=== PATIENT | female | born 1945 | race African-American/Black ===

== ENCOUNTER 2017-01-21 18:10 | Emergency (ER) | payer MEDICAID ==
[~2017-01-21 18:10] MED LIST: AMLO2.5T PO; APIX5TAB PO; ARIC10TA PO; CARB0.5D16 EACH EYE; COUG100S2 PO; FERR324T4 PO; FURO1TAB93 PO; HYDR50TA15 PO; KEPP500T3 PO; LANTUS2P SQ; METO25 PO; NOVOLOGSS SQ; PANT40IN3 PO; PHEN12.5 PO; POTA0.15 PO; REME15TA PO; SUPETAB30 PO; VALP250UDC PO
[2017-01-21 18:27] VITALS: BP 207/98; PULSE 89; RESP 20; TEMP 98.1; O2SAT 94
--- NOTE | 2017-01-21 18:33 | PD ---
HPI Chief Complaint: Medical Clearance Time Seen by Provider: 18:20 Travel History International Travel<30 days: No Contact w/Intl Traveler<30days: No Traveled to known affect area: No History of Present Illness HPI 72-year-old female with history of advanced dementia, CVA, hypertension, diabetes, presents via EMS for evaluation. The patient is a resident at [facility]. The report is that the patient was asleep and the staff was having difficulty awakening her. She woke to sternal rub. By the time EMS arrived she was back to her normal baseline mental status with a GCS of 12 but per their policy she was sent here for evaluation of the incident. The patient is currently awake, alert. Her speech is incomprehensible but she responds to simple commands. Her GCS is currently 12. She has had a cough per EMS and she does have some wheezing on auscultation bilaterally. History is otherwise limited and unobtainable from the patient. PFSH Past Medical History Alzheimer's Disease: Yes Arthritis: No Autoimmune Disease: No Blood Disorders: No Anxiety: No Depression: No Heart Rhythm Problems: No Cancer: No Cardiovascular Problems: Yes High Cholesterol: No Chemotherapy: No Chest Pain: No Congestive Heart Failure: No Cerebrovascular Accident: Yes Dementia: Yes Diabetes: Yes Diminished Hearing: No Endocrine: Yes Gastrointestinal Disorders: No Glaucoma: No Gout: No Genitourinary: No Headaches: No Hypertension: Yes Immune Disorder: No Implanted Vascular Access Dvce: No Musculoskeletal: No Neurologic: Yes Psychiatric: No Reproductive: No Respiratory: No Migraines: No Myocardial Infarction: No Pneumonia: Yes Radiation Therapy: No Seizures: Yes Thyroid Disease: No Menopausal: Yes Past Surgical History Abdominal Surgery: No AICD: No Arteriovenous Shunt: No Cardiac Surgery: No Section: Yes Ear Surgery: No Endocrine Surgery: No Eye Surgery: Yes (RIGHT EYE CATARACT SX 2009) Genitourinary Surgery: No Gynecologic Surgery: No Insulin Pump: No Joint Replacement: No Neurologic Surgery: No Oral Surgery: No Pacemaker: No Thoracic Surgery: No Other Surgery: No Social History Alcohol Use: No Tobacco Use: No Substance Use: No Allergies-Medications (Allergen,Severity, Reaction): Coded Allergies: Lisinopril (Verified Allergy, Severe, angioedema, 04/22/16) Uncoded Allergies: MARCIN INHIBITOR (Allergy, Severe, 02/01/14) Reported Meds & Prescriptions Reported Meds & Active Scripts Active Reported Valproic Acid Liq 250 Mg/5 Ml Syp 250 Mg PO DAILY Omeprazole 20 Mg Tab 20 Mg PO DAILY Lantus Inj (Insulin Glargine) 1,000 Unit/10 Ml Vial 8 Units SQ HS Furosemide 20 Mg Tab 20 Mg PO DAILY Ferrous Sulfate 325 Mg Tab 325 Mg PO DAILY Donepezil 10 Mg Tab 10 Mg PO HS Artificial Tears Opth Drops (Polyvinyl Alcohol) 1.4% Soln 1 Drop EACH EYE HS Amlodipine (Amlodipine Besylate) 2.5 Mg Tab 2.5 Mg PO DAILY Review of Systems Except as stated in HPI: all other systems reviewed are Neg Physical Exam Narrative GENERAL: Chronically ill-appearing female in no acute distress. Awake, alert. She is able to say her name. The rest of her speech is incomprehensible. SKIN: Warm and dry. HEAD: Atraumatic. Normocephalic. EYES: Pupils equal and round. No scleral icterus. No injection or drainage. ENT: No nasal bleeding or discharge. Mucous membranes pink and moist. NECK: Trachea midline. No JVD. CARDIOVASCULAR: Regular rate and rhythm. No murmur appreciated. RESPIRATORY: No accessory muscle use. Clear to auscultation. Breath sounds equal bilaterally. GASTROINTESTINAL: Abdomen soft, non-tender, nondistended. Hepatic and splenic margins not palpable. MUSCULOSKELETAL: No obvious deformities. Contractures noted to the left upper and lower extremity. She is able to international editorial producer my hand with her left and right hand. NEUROLOGICAL: Awake and alert. Incomprehensible speech. GCS 12([id number]) Data Data Last Documented VS Vital Signs Date Time Temp Pulse Resp B/P Pulse Ox O2 Delivery O2 Flow Rate FiO2 01/21/17 19:28 95 21 01/21/17 18:27 98.1 89 20 207/98 Orders Electrocardiogram (01/21/17 18:32) Complete Blood Count With Diff (01/21/17 18:32) Comprehensive Metabolic Panel (01/21/17 18:32) Urinalysis - C+S If Indicated (01/21/17 18:32) Chest, Single Ap (01/21/17 18:32) Ct Brain W/O Iv Contrast(Rout) (01/21/17 18:32) Blood Glucose (01/21/17 18:32) Ecg Monitoring (01/21/17 18:32) Iv Access Insert/Monitor (01/21/17 18:32) Oximetry (01/21/17 18:32) Sodium Chloride 0.9% Flush (Ns Flush) (01/21/17 18:45) Albuterol-Ipratropium Neb (Duoneb Neb) (01/21/17 18:45) Cath For Specimen (01/21/17 19:18) Valproic Acid (Depakene) (01/21/17 19:19) Urine Culture (01/21/17 20:19) Ceftriaxone Inj (Rocephin Inj) (01/21/17 21:00) Labs Laboratory Tests Test 01/21/17 01/21/17 19:10 20:19 White Blood Count 11.7 TH/MM3 Red Blood Count 4.52 MIL/MM3 Hemoglobin 10.1 GM/DL Hematocrit 30.7 % Mean Corpuscular Volume 67.8 FL Mean Corpuscular Hemoglobin 22.3 PG Mean Corpuscular Hemoglobin 32.9 % Concent Red Cell Distribution Width 15.4 % Platelet Count 285 TH/MM3 Mean Platelet Volume 9.6 FL Neutrophils (%) (Auto) 63.0 % Lymphocytes (%) (Auto) 26.4 % Monocytes (%) (Auto) 6.8 % Eosinophils (%) (Auto) 3.0 % Basophils (%) (Auto) 0.8 % Neutrophils # (Auto) 7.4 TH/MM3 Lymphocytes # (Auto) 3.1 TH/MM3 Monocytes # (Auto) 0.8 TH/MM3 Eosinophils # (Auto) 0.4 TH/MM3 Basophils # (Auto) 0.1 TH/MM3 CBC Comment DIFF FINAL Differential Comment Sodium Level 148 MEQ/L Potassium Level 3.9 MEQ/L Chloride Level 107 MEQ/L Carbon Dioxide Level 32.8 MEQ/L Anion Gap 8 MEQ/L Blood Urea Nitrogen 33 MG/DL Creatinine 1.92 MG/DL Estimat Glomerular Filtration 31 ML/MIN Rate Random Glucose 225 MG/DL Calcium Level 8.0 MG/DL Total Bilirubin 0.1 MG/DL Aspartate Amino Transf 16 U/L (AST/SGOT) Alanine Aminotransferase 18 U/L (ALT/SGPT) Alkaline Phosphatase 88 U/L Total Protein 6.9 GM/DL Albumin 2.7 GM/DL Valproic Acid (Depakene) Level 70 MCG/ML Urine Color YELLOW Urine Turbidity HAZY Urine pH 5.5 Urine Specific [place] 1.020 Urine Protein 100 mg/dL Urine Glucose (UA) TRACE mg/dL Urine Ketones NEG mg/dL Urine Occult Blood NEG Urine Nitrite NEG Urine Bilirubin NEG Urine Urobilinogen LESS THAN 2.0 MG/DL Urine Leukocyte Esterase LARGE Urine RBC 16 /hpf Urine WBC /hpf Urine WBC Clumps MANY Urine Squamous Epithelial 1 /hpf Cells Urine Bacteria MANY /hpf Urine Mucus FEW /lpf Microscopic Urinalysis Comment CATH-CULTURE IND MDM Medical Decision Making Medical Screen Exam Complete: Yes Emergency Medical Condition: Yes Medical Record Reviewed: Yes Interpretation(s) CT brain CONCLUSION: No bleed or other acute intracranial abnormality demonstrated. Old infarcts and chronic white matter changes are again noted. Chest x-ray no acute abnormalities Differential Diagnosis Urinary tract infection, dehydration, electrolyte abnormality, sepsis, CVA, TIA , arrhythmia, syncope, seizure Narrative Course 72-year-old female presents via EMS for evaluation of an episode in which she was lethargic. She responded to sternal rub and since then she has been at her baseline. Currently GCS of 12, no obvious acute focal abnormalities. Plan is for basic lab work, chest x-ray, CT of the brain. Lab work and imaging studies a been reviewed. Urinalysis is consistent with urinary tract infection. WBC is slightly elevated at 11.7. GFR is 31 which is her baseline. CT brain reveals no acute abnormalities. Dr. Reeves discussed with the patient's daughter who is agreeable with outpatient treatment with oral antibiotics. Previous urine cultures revealed Escherichia coli sensitive to Macrobid so the patient will be started on Macrobid. She was given a dose of Rocephin here. Discussed signs and symptoms or to return to the emergency room. She is stable for discharge. Diagnosis Primary Impression: Urinary tract infection Qualified Code: N30.01 - Acute cystitis with hematuria Additional Instructions: Antibiotic as prescribed. Follow-up with primary care physician as needed and return for any new or worsening symptoms. Med/Other Pt SpecificInfo: Prescription(s) given Disposition: DISCHARGE HOME Condition: Stable Alex Albert January 21, 2017 18:33
[2017-01-21] MEDS ORDERED: SODIUM CHLORIDE 0.9% FLUSH 5 ML FLUSH IV FLUSH PRN (18:45)
[2017-01-21] MEDS ORDERED: RESP: ALBUTEROL 2.5 MG/IPRATROPIUM 0.5 MG NEB (SCH) INH ONE (18:45)
--- NOTE | 2017-01-21 18:55 | RADRPT ---
EXAM DATE/TIME: 01/21/2017 18:35 [facility] COMPARISON: No previous studies available for comparison. INDICATIONS : Cough MEDICAL HISTORY : Hypertension. Diabetes mellitus type II. SURGICAL HISTORY : section. ENCOUNTER: Initial ACUITY: 1 day PAIN SCORE: Non-responsive. LOCATION: Bilateral chest FINDINGS: A single view of the chest demonstrates the lungs to be symmetrically aerated without evidence of mas s, infiltrate or effusion. The cardiomediastinal contours are unremarkable. Osseous structures are intact. CONCLUSION: No evidence of acute cardiopulmonary disease. Pa Mccullough MD on January 21, 2017 at 18:53 Board Certified Radiologist. This report was verified electronically.
--- NOTE | 2017-01-21 19:09 | RADRPT ---
EXAM DATE/TIME: 01/21/2017 18:54 [facility] COMPARISON: CT BRAIN W/O CONTRAST, March 18, 2016, 6:47. INDICATIONS : Altered mental status, lethargic. RADIATION DOSE: 56.35 CTDIvol (mGy) MEDICAL HISTORY : Stroke. Alzheimer's. Dementia. SURGICAL HISTORY : None. ENCOUNTER: Initial ACUITY: 1 day PAIN SCALE: Non-responsive LOCATION: Bilateral head TECHNIQUE: Multiple contiguous axial images were obtained of the head. Using automated exposure control and adj ustment of the mA and/or kV according to patient size, radiation dose was kept as low as reasonably a chievable to obtain optimal diagnostic quality images. FINDINGS: CEREBRUM: The ventricles are normal for age. No evidence of midline shift, mass lesion, hemorrhage or acute in farction. No extra-axial fluid collections are seen. Old left frontal and right parietal infarcts ar e again seen and there is chronic low-attenuation in the periventricular white matter. POSTERIOR FOSSA: The cerebellum and brainstem are intact. The 4th ventricle is midline. The cerebellopontine angle i s unremarkable. EXTRACRANIAL: The visualized portion of the orbits is intact. SKULL: The calvaria is intact. No evidence of skull fracture. CONCLUSION: No bleed or other acute intracranial abnormality demonstrated. Old infarcts and chronic white matter changes are again noted. Pa Mccullough MD on January 21, 2017 at 19:07 Board Certified Radiologist. This report was verified electronically.
[2017-01-21 19:15] VITALS: O2SAT 95
[2017-01-21 19:28] VITALS: O2SAT 95
--- NOTE | 2017-01-21 19:41 | PD ---
Physical Exam Exam Limitations: Other: (prior stroke deficit) Narrative GENERAL: Well-nourished, well-developed patient. SKIN: Warm and dry. HEAD: atraumatic. EYES: No injection or drainage. ENT: No nasal drainage noted. NECK: Supple, trachea midline. CARDIOVASCULAR: Regular rate and rhythm RESPIRATORY: no increased effort. No accessory muscle use. NEUROLOGICAL: Awake. Prior deficits from stroke noted, per daughter at baseline Data Data Last Documented VS Vital Signs Date Time Temp Pulse Resp B/P Pulse Ox O2 Delivery O2 Flow Rate FiO2 01/21/17 19:28 95 21 01/21/17 18:27 98.1 89 20 207/98 Orders Electrocardiogram (01/21/17 18:32) Complete Blood Count With Diff (01/21/17 18:32) Comprehensive Metabolic Panel (01/21/17 18:32) Urinalysis - C+S If Indicated (01/21/17 18:32) Chest, Single Ap (01/21/17 18:32) Ct Brain W/O Iv Contrast(Rout) (01/21/17 18:32) Blood Glucose (01/21/17 18:32) Ecg Monitoring (01/21/17 18:32) Iv Access Insert/Monitor (01/21/17 18:32) Oximetry (01/21/17 18:32) Sodium Chloride 0.9% Flush (Ns Flush) (01/21/17 18:45) Albuterol-Ipratropium Neb (Duoneb Neb) (01/21/17 18:45) Cath For Specimen (01/21/17 19:18) Valproic Acid (Depakene) (01/21/17 19:19) Urine Culture (01/21/17 20:19) Ceftriaxone Inj (Rocephin Inj) (01/21/17 21:00) Labs Laboratory Tests Test 01/21/17 01/21/17 19:10 20:19 White Blood Count 11.7 TH/MM3 Red Blood Count 4.52 MIL/MM3 Hemoglobin 10.1 GM/DL Hematocrit 30.7 % Mean Corpuscular Volume 67.8 FL Mean Corpuscular Hemoglobin 22.3 PG Mean Corpuscular Hemoglobin 32.9 % Concent Red Cell Distribution Width 15.4 % Platelet Count 285 TH/MM3 Mean Platelet Volume 9.6 FL Neutrophils (%) (Auto) 63.0 % Lymphocytes (%) (Auto) 26.4 % Monocytes (%) (Auto) 6.8 % Eosinophils (%) (Auto) 3.0 % Basophils (%) (Auto) 0.8 % Neutrophils # (Auto) 7.4 TH/MM3 Lymphocytes # (Auto) 3.1 TH/MM3 Monocytes # (Auto) 0.8 TH/MM3 Eosinophils # (Auto) 0.4 TH/MM3 Basophils # (Auto) 0.1 TH/MM3 CBC Comment DIFF FINAL Differential Comment Sodium Level 148 MEQ/L Potassium Level 3.9 MEQ/L Chloride Level 107 MEQ/L Carbon Dioxide Level 32.8 MEQ/L Anion Gap 8 MEQ/L Blood Urea Nitrogen 33 MG/DL Creatinine 1.92 MG/DL Estimat Glomerular Filtration 31 ML/MIN Rate Random Glucose 225 MG/DL Calcium Level 8.0 MG/DL Total Bilirubin 0.1 MG/DL Aspartate Amino Transf 16 U/L (AST/SGOT) Alanine Aminotransferase 18 U/L (ALT/SGPT) Alkaline Phosphatase 88 U/L Total Protein 6.9 GM/DL Albumin 2.7 GM/DL Valproic Acid (Depakene) Level 70 MCG/ML Urine Color YELLOW Urine Turbidity HAZY Urine pH 5.5 Urine Specific [place] 1.020 Urine Protein 100 mg/dL Urine Glucose (UA) TRACE mg/dL Urine Ketones NEG mg/dL Urine Occult Blood NEG Urine Nitrite NEG Urine Bilirubin NEG Urine Urobilinogen LESS THAN 2.0 MG/DL Urine Leukocyte Esterase LARGE Urine RBC 16 /hpf Urine WBC /hpf Urine WBC Clumps MANY Urine Squamous Epithelial 1 /hpf Cells Urine Bacteria MANY /hpf Urine Mucus FEW /lpf Microscopic Urinalysis Comment CATH-CULTURE IND MDM Medical Record Reviewed: Yes (past history confirm, recent admission in April reviewed) Supervised Visit with JULIANN: Yes Interpretation(s) CBC & BMP Diagram 01/21/17 19:10 Last [address] 01/21/171831 Signed Impressions: Service Date/Time: Saturday, January 21, 2017 18:54 - CONCLUSION: No bleed or other acute intracranial abnormality demonstrated. Old infarcts and chronic white matter changes are again noted. Pa Mccullough MD Chest X-Ray 01/21/171831 Signed Impressions: Service Date/Time: Saturday, January 21, 2017 18:35 - CONCLUSION: No evidence of acute cardiopulmonary disease. Pa Mccullough MD ua with uti Narrative Course I, Dr. dia, have reviewed the advance practice practitioner's documentation and am in agreement, met with the patient face to face, made the diagnosis, and the medical decision making was done by me. *My assessment and Findings: 72 -year-old female presents with episode where she was hard to arouse. When the ambulance got there she was at her baseline. Patient cannot provide history. Daughter at bedside who is now in the ER states she had a similar episode in the hospital when she was here for elevated sodium. She agrees to testing as ordered and will update 8:57 PM. Blood work reviewed renal insufficiency at prior. no sirs criteria. Patient at baseline. Prior microbiology reviewed for urinary tract infection which is sensitive to Rocephin and Macrobid. She will be given Rocephin and sent home on Macrobid with follow-up with her primary care physician tomorrow. Lengthy discussion with daughter over the phone and she agrees to discharge given the above. Diagnosis Primary Impression: UTI (urinary tract infection) Qualified Code: N39.0 - Urinary tract infection without hematuria, site unspecified Additional Instruction: follow with primary tommorrow, return as needed Med/Other Pt SpecificInfo: Prescription(s) given Scripts Nitrofurantoin Monohydrate Macrocrystals (Macrobid)100 Mg [id number] Mg PO BID 7 Days Ref 0 Prov:Irma Dia MD 01/21/17 Disposition: 03 DISCHARGE TO SNF Condition: Stable Irma Dia MD January 21, 2017 19:41
[2017-01-21 19:55] VITALS: BP 182/78
[2017-01-21 20:07] LABS: AUTOMATED NEUTROPHIL # 7.4 TH/MM3 (1.8-7.7); BASOPHIL # 0.1 TH/MM3 (0-0.2); BASOPHIL % 0.8 % (0.0-2.0); EOSINOPHIL # 0.4 TH/MM3 (0-0.4); HEMATOCRIT 30.7 % (35.0-46.0); HEMO FLAGS DIFF FINAL; LYMPH % 26.4 % (9.0-44.0); LYMPHOCYTE # 3.1 TH/MM3 (1.0-4.8); MEAN CELL VOLUME 67.8 FL (80.0-100.0); MEAN CORPUSCULAR HEMOGLOBIN 22.3 PG (27.0-34.0); MEAN CORPUSCULAR HGB CONC 32.9 % (32.0-36.0); MONO % 6.8 % (0.0-8.0); PLATELET COUNT 285 TH/MM3 (150-450); RED BLOOD COUNT 4.52 MIL/MM3 (4.00-5.30); RED CELL DISTRIBUTION WIDTH 15.4 % (11.6-17.2); WHITE BLOOD COUNT 11.7 TH/MM3 (4.0-11.0)
[2017-01-21 20:29] LABS: ANION GAP 8 MEQ/L (5-15); AST (GOT) 16 U/L (15-37); BICARBONATE 32.8 MEQ/L (21.0-32.0); BLOOD UREA NITROGEN 33 MG/DL (7-18); CHLORIDE 107 MEQ/L (98-107); GLOMERULAR FILTRATION RATE 31 ML/MIN (>89); POTASSIUM 3.9 MEQ/L (3.5-5.1); SODIUM (NA) 148 MEQ/L (136-145)
[2017-01-21 20:32] LABS: ALKALINE PHOSPHATASE 88 U/L (45-117); ALT (GPT) 18 U/L (10-53); TOTAL BILIRUBIN ADULT 0.1 MG/DL (0.2-1.0)
[2017-01-21] MEDS ORDERED: POLY99.0 EACH EYE (20:44)
[2017-01-21] MEDS ORDERED: VALP250S2 PO (20:44)
[2017-01-21] MEDS ORDERED: OMEP20TA PO (20:44)
[2017-01-21] MEDS ORDERED: LANTUS2P SQ (20:44)
[2017-01-21] MEDS ORDERED: FERR325T PO (20:44)
[2017-01-21] MEDS ORDERED: DONE10TA7 PO (20:44)
[2017-01-21] MEDS ORDERED: AMLO2.5T PO (20:44)
[2017-01-21] MEDS ORDERED: FURO20TA PO (20:44)
[2017-01-21 20:45] LABS: BACTERIA, URINE MANY /hpf; BLOOD, URINE NEG (NEG); COMMENT (UR) CATH-CULTURE IND; CULTURE IF INDICATED CATH CULTURE IND; GLUCOSE,URINE TRACE mg/dL (NEG); KETONE, URINE NEG (NEG); MUCUS URINE FEW /lpf (OCC); NITRITE,URINE NEG (NEG); PH, URINE 5.5 (5.0-8.5); SQUAMOUS EPITHELIAL CELL URINE 1 /hpf (0-5); URINE COLOR YELLOW (YELLW/STRAW)
[2017-01-21] MEDS ORDERED: cefTRIAXone INJ 1,000 MG in SODIUM CHLORIDE 0.9% INJ 100 ML IV ONE (21:00)
[2017-01-21] MEDS ORDERED: MACR100C2 PO (21:12)
[2017-01-21] MEDS ORDERED: FLEEENE3 RECTAL (21:36)
[2017-01-21] MEDS ORDERED: METO50TA PO (21:36)
[2017-01-21] MEDS ORDERED: MAPA325T PO (21:36)
[2017-01-21] MEDS ORDERED: HYDR50TA15 PO (21:36)
[2017-01-21] MEDS ORDERED: MILKSUS PO (21:36)
[2017-01-21] MEDS ORDERED: APIX2.5T PO (21:36)
[2017-01-21] MEDS ORDERED: DULC10SU3 RECTAL (21:36)
[2017-01-21] MEDS ORDERED: LEVE500 PO (21:36)
[2017-01-21] MEDS ORDERED: GLUC0.8I2 IM (21:37)
[2017-01-21 21:45] VITALS: BP 169/78; PULSE 77; O2SAT 96
[2017-01-22 07:00] VITALS: BP 168/82; PULSE 76; RESP 17; TEMP 97.8; O2SAT 99
--- NOTE | 2017-01-22 13:13 | EKG ---
Date Performed: 01/21/2017 Time Performed: 20:14:03 PTAGE: 72 years EKG: Sinus rhythm MARKED LEFT AXIS DEVIATION POSSIBLE RIGHT VENTRICULAR CONDUCTION DELAY SEPTAL MYOCARDIAL INFARCTION ABNORMAL ECG Compared to prior tracing no significant change PREVIOUS TRACING 04/22/2016 10.33.06 DOCTOR: Oleg Garces Interpretating Date/Time 01/22/2017 13:11:43
== END 2017-01-22 09:30 | disposition home or self-care (01) ==
LOC: NEPC 18:10 → NEPD 01-22 09:30
DX: N39.0 Urinary tract infection, site not specified (principal); B96.89 Other specified bacterial agents as the cause of diseases classified elsewhere; R31.9 Hematuria, unspecified; R05 Cough; D72.829 Elevated white blood cell count, unspecified; R41.82 Altered mental status, unspecified; R53.83 Other fatigue; E11.9 Type 2 diabetes mellitus without complications; G30.9 Alzheimer's disease, unspecified; I10 Essential (primary) hypertension; R94.31 Abnormal electrocardiogram [ECG] [EKG]; Z79.4 Long term (current) use of insulin
CPT/HCPCS: 70450; 71010; 80053; 80164; 81001; 85025; 87077; 87086; 87186; 93005; 94664; 96365; 99285; J0696; P9612

== ENCOUNTER 2017-11-19 19:15 | Emergency (ER) | payer MEDICAID, OTHER ==
[~2017-11-19 19:15] MED LIST changes: +APIX2.5T PO; -APIX5TAB PO; -ARIC10TA PO; -CARB0.5D16 EACH EYE; -COUG100S2 PO; +DONE10TA7 PO; +DULC10SU3 RECTAL; -FERR324T4 PO; +FERR325T PO; +FLEEENE3 RECTAL; -FURO1TAB93 PO; +FURO20TA PO; +GLUC0.8I2 IM; -KEPP500T3 PO; +LEVE500 PO; +MACR100C2 PO; +MAPA325T PO; -METO25 PO; +METO50TA PO; +MILKSUS PO; -NOVOLOGSS SQ; +OMEP20TA93 PO; -PANT40IN3 PO; -PHEN12.5 PO; +POLY99.0 EACH EYE; -POTA0.15 PO; -REME15TA PO; -SUPETAB30 PO; +VALP250S2 PO; -VALP250UDC PO
[2017-11-19 20:02] VITALS: BP 220/99; PULSE 60; RESP 18; TEMP 99.2; O2SAT 99
--- NOTE | 2017-11-19 20:47 | PD ---
HPI Chief Complaint: Altered Mental Status Time Seen by Provider: 20:21 Travel History International Travel<30 days: No Contact w/Intl Traveler<30days: No Traveled to known affect area: No History of Present Illness HPI 72-year-old female that presents to the ED for evaluation of altered mental status. Patient currently lives in an [facility] HOME and apparently has been altered since this afternoon. Unclear as to any history as patient herself is not a good historian and cannot get any history from her. She appears to be nonverbal and cannot really answer any questions to me. She appears to be no distress. Per old medical records she does have a history of Alzheimer's. Apparently she was eating some. patient appears to be in no distress and then after this she started having the symptoms. She does have a history of UTIs in the past. Again history is very limited. There is no family at bedside for me to get any other history. All the history obtained is from ED nurse. PFSH Past Medical History Alzheimer's Disease: Yes Arthritis: No Autoimmune Disease: No Blood Disorders: No Anxiety: No Depression: No Heart Rhythm Problems: No Cancer: No Cardiovascular Problems: Yes High Cholesterol: No Chemotherapy: No Chest Pain: No Congestive Heart Failure: No Cerebrovascular Accident: Yes Dementia: Yes Diabetes: Yes Patient Takes Glucophage: No Diminished Hearing: No Endocrine: Yes Gastrointestinal Disorders: No Glaucoma: No Gout: No Genitourinary: No Headaches: No Hypertension: Yes Immune Disorder: No Implanted Vascular Access Dvce: No Musculoskeletal: No Neurologic: Yes Psychiatric: No Reproductive: No Respiratory: No Migraines: No Myocardial Infarction: No Pneumonia: Yes Radiation Therapy: No Seizures: Yes Thyroid Disease: No ?: Not Menopausal: Yes Past Surgical History Abdominal Surgery: No AICD: No Arteriovenous Shunt: No Cardiac Surgery: No Section: Yes Ear Surgery: No Endocrine Surgery: No Eye Surgery: Yes (RIGHT EYE CATARACT SX 2008) Genitourinary Surgery: No Gynecologic Surgery: No Insulin Pump: No Joint Replacement: No Neurologic Surgery: No Oral Surgery: No Pacemaker: No Thoracic Surgery: No Other Surgery: No Social History Alcohol Use: No Tobacco Use: No Substance Use: No Allergies-Medications (Allergen,Severity, Reaction): Coded Allergies: lisinopril (Unverified Allergy, Severe, angioedema, 04/17/17) Uncoded Allergies: MARCIN INHIBITOR (Allergy, Severe, 02/01/14) Reported Meds & Prescriptions Reported Meds & Active Scripts Active Macrobid (Nitrofurantoin Monoh/Nitrofur Macro) 100 Mg Cap 100 Mg PO BID 7 Days Reported Glucagon Inj 1 Mg/Ml Inj 1 Mg IM ONCE PRN Milk of Magnesia Liq (Magnesium Hydroxide) 400 Mg/5 Ml Susp 30 Ml PO DAILY PRN Fleet Enema Rectal (Sodium Phosphates Rectal) 7-19 Gm/118 Ml Enem 118 Ml RECTAL DAILY PRN Dulcolax Supp (Bisacodyl) 10 Mg Supp 10 Mg RECTAL DAILY PRN Mapap (Acetaminophen) 325 Mg Tab 325 Mg PO Q4HR PRN Hydralazine (Hydralazine HCl) 50 Mg Tab 50 Mg PO QID Take with a meal Metoprolol Tartrate 50 Mg Tab 50 Mg PO BID Keppra (Levetiracetam) 500 Mg Tab 500 Mg PO BID Eliquis (Apixaban) 2.5 Mg Tab 2.5 Mg PO BID Valproic Acid Liq 250 Mg/5 Ml Syp 250 Mg PO DAILY Omeprazole 20 Mg Tab 20 Mg PO DAILY Lantus Inj (Insulin Glargine) 1,000 Unit/10 Ml Vial 8 Units SQ HS Furosemide 20 Mg Tab 20 Mg PO DAILY Ferrous Sulfate 325 Mg Tab 325 Mg PO DAILY Donepezil 10 Mg Tab 10 Mg PO HS Artificial Tears Opth Drops (Polyvinyl Alcohol) 1.4% Soln 1 Drop EACH EYE HS Amlodipine (Amlodipine Besylate) 2.5 Mg Tab 2.5 Mg PO DAILY Review of Systems Except as stated in HPI: all other systems reviewed are Neg Physical Exam Narrative GENERAL: SKIN: Warm and dry. HEAD: Atraumatic. Normocephalic. EYES: Pupils equal and round. No scleral icterus. No injection or drainage. ENT: No nasal bleeding or discharge. Mucous membranes pink and moist. Tongue is midline. No uvula deviation. NECK: Trachea midline. No JVD. CARDIOVASCULAR: Regular rate and rhythm. No murmurs, S3, S4. RESPIRATORY: No accessory muscle use. Clear to auscultation. Breath sounds equal bilaterally. GASTROINTESTINAL: Abdomen soft, non-tender, nondistended. Hepatic and splenic margins not palpable. MUSCULOSKELETAL: Extremities without clubbing, cyanosis, or edema. No obvious deformities. Full range of motion of the upper and lower extremity is bilaterally. 2+ pulses bilaterally. NEUROLOGICAL: Awake and alert but not oriented at all. No obvious cranial nerve deficits. Motor grossly within normal limits. Five out of 5 muscle strength in the arms and legs. Normal speech. PSYCHIATRIC: Appropriate mood and affect; insight and judgment normal. Data Data Last Documented VS Vital Signs Date Time Temp Pulse Resp B/P (MAP) Pulse Ox O2 Delivery O2 Flow Rate FiO2 11/19/17 20:02 99.2 60 18 220/99 (139) 99 Orders Orders Electrocardiogram (11/19/17 20:41) Complete Blood Count With Diff (11/19/17 20:41) Comprehensive Metabolic Panel (11/19/17 20:41) Ckmb (Isoenzyme) Profile (11/19/17 20:41) Troponin I (11/19/17 20:41) Prothrombin Time / Inr (Pt) (11/19/17 20:41) Act Partial Throm Time (Ptt) (11/19/17 20:41) Blood Culture (11/19/17 20:41) Lipase (11/19/17 20:41) Urinalysis - C+S If Indicated (11/19/17 20:41) Cath For Specimen (11/19/17 20:41) Magnesium (Mg) (11/19/17 20:41) Thyroid Stimulating Hormone (11/19/17 20:41) Chest, Single Ap (11/19/17 20:41) Ct Brain W/O Iv Contrast(Rout) (11/19/17 20:41) Iv Access Insert/Monitor (11/19/17 20:41) Ecg Monitoring (11/19/17 20:41) Oximetry (11/19/17 20:41) Sepsis Workup Initiated (11/19/17 ) Lactic Acid Sepsis Protocol (11/19/17 20:42) Blood Culture (11/19/17 20:42) Oxygen Administration (11/19/17 20:42) Blood Glucose (11/19/17 20:42) MDM Medical Decision Making Medical Screen Exam Complete: Yes Emergency Medical Condition: Yes Medical Record Reviewed: Yes Differential Diagnosis Altered mental status versus infection versus UTI versus CVA versus seizure disorder versus electrolyte abnormality Narrative Course 72-year-old female that presents to the ED for evaluation of altered mental status. Patient was properly examined and was found to have signs and symptoms consistent appears to be altered mental status. Unclear etiology. History is limited and cannot really give any good history to see what might be causing this. She does have a history of UTI in the past as well as electrolyte abnormalities. Labs and imaging were ordered. Case will be signed out to incoming provider pending disposition and plan. Jeancarlos Stubbs Nov 19, 2017 20:47
[2017-11-19 21:21] LABS: AUTOMATED NEUTROPHIL # 5.7 TH/MM3 (1.8-7.7); BASOPHIL # 0.1 TH/MM3 (0-0.2); EOSINOPHIL # 0.3 TH/MM3 (0-0.4); EOSINOPHIL % 3.2 % (0.0-4.0); HEMATOCRIT 31.7 % (35.0-46.0); HEMOGLOBIN 10.1 GM/DL (11.6-15.3); LYMPH % 33.5 % (9.0-44.0); LYMPHOCYTE # 3.5 TH/MM3 (1.0-4.8); MEAN CORPUSCULAR HEMOGLOBIN 21.8 PG (27.0-34.0); MEAN PLATELET VOLUME 8.6 FL (7.0-11.0); MONO % 7.7 % (0.0-8.0); MONOCYTE # 0.8 TH/MM3 (0-0.9); NEUT % 54.6 % (16.0-70.0); PLATELET COUNT 325 TH/MM3 (150-450); RED BLOOD COUNT 4.66 MIL/MM3 (4.00-5.30); WHITE BLOOD COUNT 10.5 TH/MM3 (4.0-11.0)
--- NOTE | 2017-11-19 21:25 | RADRPT ---
EXAM DATE/TIME: 11/19/2017 20:49 [facility] COMPARISON: CHEST SINGLE AP, January 21, 2017, 18:35. CT BRAIN W/O CONTRAST, January 21, 2017, 18:54. INDICATIONS : Cough. MEDICAL HISTORY : Stroke. Alzheimer's. dementia. SURGICAL HISTORY : None. ENCOUNTER: Initial ACUITY: 1 day PAIN SCORE: Non-responsive. LOCATION: Bilateral chest FINDINGS: A single view of the chest demonstrates cardiomegaly. Mild basilar atelectasis tortuous aorta. No eff usion or pneumothorax. Healing fracture proximal right humerus. CONCLUSION: 1. Cardiomegaly. Basilar atelectasis. No effusion or pneumothorax. Jason Andre MD on November 19, 2017 at 21:21 Board Certified Radiologist. This report was verified electronically.
[2017-11-19 21:32] LABS: INTERNATIONAL NORMALIZED RATIO 1.1 RATIO
[2017-11-19 21:39] LABS: ALBUMIN 2.9 GM/DL (3.4-5.0); ALT (GPT) LESS THAN 6 U/L (10-53); AST (GOT) 9 U/L (15-37); BICARBONATE 30.8 MEQ/L (21.0-32.0); BLOOD UREA NITROGEN 28 MG/DL (7-18); CALCIUM 8.2 MG/DL (8.5-10.1); CHLORIDE 102 MEQ/L (98-107); CREATININE 1.61 MG/DL (0.50-1.00); GLOMERULAR FILTRATION RATE 38 ML/MIN (>89); GLUCOSE,RANDOM 148 MG/DL (74-106); MAGNESIUM 2.5 MG/DL (1.5-2.5); SODIUM (NA) 142 MEQ/L (136-145)
[2017-11-19 21:49] LABS: ALKALINE PHOSPHATASE 96 U/L (45-117); TOTAL BILIRUBIN ADULT 0.2 MG/DL (0.2-1.0); TOTAL PROTEIN 7.1 GM/DL (6.4-8.2); TROPONIN I LESS THAN 0.02 NG/ML (0.02-0.05)
[2017-11-19 21:56] VITALS: BP 173/79; PULSE 56; RESP 16; O2SAT 98
--- NOTE | 2017-11-19 21:59 | RADRPT ---
EXAM DATE/TIME: 11/19/2017 21:45 [place] COMPARISON: CT BRAIN W/O CONTRAST, January 21, 2017, 18:54. INDICATIONS : Altered mental status. RADIATION DOSE: 38.45 CTDIvol (mGy) MEDICAL HISTORY : Seizures. Stroke Dementia.HTN SURGICAL HISTORY : None. ENCOUNTER: Initial ACUITY: 1 day PAIN SCALE: Non-responsive LOCATION: cranial TECHNIQUE: Multiple contiguous axial images were obtained of the head. Using automated exposure control and adj ustment of the mA and/or kV according to patient size, radiation dose was kept as low as reasonably a chievable to obtain optimal diagnostic quality images. DICOM format image data is available electro nically for review and comparison. FINDINGS: Compare January 21, 2017. Left frontal lobe encephalomalacia. Chronic white matter ischemic changes. No m ass effect or shift. No hydrocephalus. No acute bony abnormalities. CONCLUSION: Encephalomalacia of the left frontal lobe. Cortical atrophy. No significant change from January 2017. Jason Andre MD on November 19, 2017 at 21:55 Board Certified Radiologist. This report was verified electronically.
[2017-11-19] MEDS ORDERED: TRIA37.53 (22:34)
[2017-11-19] MEDS ORDERED: AMLO5 PO (22:34)
[2017-11-19] MEDS ORDERED: HYDR-3801 PO (22:34)
[2017-11-19] MEDS ORDERED: METO-309 PO (22:34)
[2017-11-19 22:37] LABS: BACTERIA, URINE RARE /hpf; BILIRUBIN, URINE NEG (NEG); BLOOD, URINE NEG (NEG); GLUCOSE,URINE NEG (NEG); HYALINE CAST, URINE 6 /lpf (RARE); KETONE, URINE NEG (NEG); MUCUS URINE FEW /lpf (OCC); NITRITE,URINE NEG (NEG); PH, URINE 5.5 (5.0-8.5); SQUAMOUS EPITHELIAL CELL URINE 11 /hpf (0-5); URINE COLOR YELLOW (YELLW/STRAW); URINE LEUKOCYTE ESTERASE MOD (NEG)
[2017-11-19] MEDS ORDERED: MACR100C2 PO (22:59)
--- NOTE | 2017-11-19 22:59 | PD ---
HPI Chief Complaint: Altered Mental Status Time Seen by Provider: 20:21 Travel History International Travel<30 days: No Contact w/Intl Traveler<30days: No Traveled to known affect area: No History of Present Illness HPI 72-year-old female was sent to the emergency room from the custodial for being noncommunicative. Patient apparently ate the dinner today which was pur ed diet after which she stopped talking. Patient has history of dementia and she opens her eyes upon calling her name but has been nonverbal. She had a similar episode last time and was diagnosed with UTI. Patient is not a good historian. History is mostly obtained from the paperwork that sent from the custodial. Vital signs otherwise stable. Patient was seen and workup initiated by the PA out in the ambulance lackey. [facility] Past Medical History Narrative Medical List of his past medical, surgical, social and family history is reviewed from the nursing note. Alzheimer's Disease: Yes Arthritis: No Autoimmune Disease: No Blood Disorders: No Anxiety: No Depression: No Heart Rhythm Problems: No Cancer: No Cardiovascular Problems: Yes High Cholesterol: No Chemotherapy: No Chest Pain: No Congestive Heart Failure: No Cerebrovascular Accident: Yes Dementia: Yes Diabetes: Yes Patient Takes Glucophage: No Diminished Hearing: No Endocrine: Yes Gastrointestinal Disorders: No Glaucoma: No Gout: No Genitourinary: No Headaches: No Hypertension: Yes Immune Disorder: No Implanted Vascular Access Dvce: No Musculoskeletal: No Neurologic: Yes Psychiatric: No Reproductive: No Respiratory: No Migraines: No Myocardial Infarction: No Pneumonia: Yes Radiation Therapy: No Seizures: Yes Thyroid Disease: No ?: Not Menopausal: Yes Past Surgical History Abdominal Surgery: No AICD: No Arteriovenous Shunt: No Cardiac Surgery: No Section: Yes Ear Surgery: No Endocrine Surgery: No Eye Surgery: Yes (RIGHT EYE CATARACT SX 2009) Genitourinary Surgery: No Gynecologic Surgery: No Insulin Pump: No Joint Replacement: No Neurologic Surgery: No Oral Surgery: No Pacemaker: No Thoracic Surgery: No Other Surgery: No Social History Alcohol Use: No Tobacco Use: No Substance Use: No Allergies-Medications (Allergen,Severity, Reaction): Coded Allergies: lisinopril (Unverified Allergy, Severe, angioedema, 04/17/17) Uncoded Allergies: MARCIN INHIBITOR (Allergy, Severe, 02/01/14) Comments List of his allergies reviewed from the nursing note. Reported Meds & Prescriptions Reported Meds & Active Scripts Active Macrobid (Nitrofurantoin Monoh/Nitrofur Macro) 100 Mg Cap 100 Mg PO BID 10 Days Reported Triamterene-Hydrochlorothiazide 37.5-25 Mg Cap 1 Cap DAILY Lopressor (Metoprolol Tartrate) 50 Mg Tab 25 Mg PO BID Norvasc (Amlodipine Besylate) 5 Mg Tab 5 Mg PO DAILY Hydralazine (Hydralazine HCl) 100 Mg Tab 50 Mg PO QID Take with meals Milk of Magnesia Liq (Magnesium Hydroxide) 400 Mg/5 Ml Susp 30 Ml PO DAILY PRN Mapap (Acetaminophen) 325 Mg Tab 325 Mg PO Q4HR PRN Keppra (Levetiracetam) 500 Mg Tab 500 Mg PO BID Valproic Acid Liq 250 Mg/5 Ml Syp 250 Mg PO DAILY Lantus Inj (Insulin Glargine) 1,000 Unit/10 Ml Vial 8 Units SQ HS Donepezil 10 Mg Tab 10 Mg PO HS Artificial Tears Opth Drops (Polyvinyl Alcohol) 1.4% Soln 1 Drop EACH EYE HS Narrative Medication List of his home medications reviewed from the nursing note. Review of Systems ROS Limitations: Altered Mental Status Except as stated in HPI: all other systems reviewed are Neg Physical Exam Narrative GENERAL: Elderly, awake, nonverbal, no obvious distress SKIN: Focused skin assessment warm/dry. HEAD: Atraumatic. Normocephalic. EYES: Pupils equal and round. No scleral icterus. No injection or drainage. ENT: No nasal bleeding or discharge. Mucous membranes pink and moist. NECK: Trachea midline. No JVD. CARDIOVASCULAR: Regular rate and rhythm. No murmur appreciated. RESPIRATORY: No accessory muscle use. Clear to auscultation. Breath sounds equal bilaterally. GASTROINTESTINAL: Abdomen soft, non-tender, nondistended. Hepatic and splenic margins not palpable. MUSCULOSKELETAL: No obvious deformities. No clubbing. No cyanosis. No edema. NEUROLOGICAL: Awake and alert but nonverbal and noncommunicative. No obvious cranial nerve deficits. Motor grossly within normal limits. PSYCHIATRIC: Appropriate mood and affect; insight and judgment normal. Data Data Last Documented VS Vital Signs Date Time Temp Pulse Resp B/P (MAP) Pulse Ox O2 Delivery O2 Flow Rate FiO2 11/20/17 07:39 11/19/17 21:57 Room Air 11/19/17 21:57 96 11/19/17 21:56 56 16 11/19/17 20:02 99.2 Orders Orders Electrocardiogram (11/19/17 20:41) Complete Blood Count With Diff (11/19/17 20:41) Comprehensive Metabolic Panel (11/19/17 20:41) Ckmb (Isoenzyme) Profile (11/19/17 20:41) Troponin I (11/19/17 20:41) Prothrombin Time / Inr (Pt) (11/19/17 20:41) Act Partial Throm Time (Ptt) (11/19/17 20:41) Blood Culture (11/19/17 20:41) Lipase (11/19/17 20:41) Urinalysis - C+S If Indicated (11/19/17 20:41) Cath For Specimen (11/19/17 20:41) Magnesium (Mg) (11/19/17 20:41) Thyroid Stimulating Hormone (11/19/17 20:41) Chest, Single Ap (11/19/17 20:41) Ct Brain W/O Iv Contrast(Rout) (11/19/17 20:41) Iv Access Insert/Monitor (11/19/17 20:41) Ecg Monitoring (11/19/17 20:41) Oximetry (11/19/17 20:41) Sepsis Workup Initiated (11/19/17 ) Lactic Acid Sepsis Protocol (11/19/17 20:42) Oxygen Administration (11/19/17 20:42) Blood Glucose (11/19/17 20:42) ^ Straight Catheter (11/19/17 22:05) Urine Culture (11/19/17 22:10) Ed Discharge Order (11/19/17 23:00) Labs Laboratory Tests Test 11/19/17 20:30 11/19/17 22:10 White Blood Count 10.5 TH/MM3 Red Blood Count 4.66 MIL/MM3 Hemoglobin 10.1 GM/DL Hematocrit 31.7 % Mean Corpuscular Volume 68.0 FL Mean Corpuscular Hemoglobin 21.8 PG Mean Corpuscular Hemoglobin Concent 32.0 % Red Cell Distribution Width 15.0 % Platelet Count 325 TH/MM3 Mean Platelet Volume 8.6 FL Neutrophils (%) (Auto) 54.6 % Lymphocytes (%) (Auto) 33.5 % Monocytes (%) (Auto) 7.7 % Eosinophils (%) (Auto) 3.2 % Basophils (%) (Auto) 1.0 % Neutrophils # (Auto) 5.7 TH/MM3 Lymphocytes # (Auto) 3.5 TH/MM3 Monocytes # (Auto) 0.8 TH/MM3 Eosinophils # (Auto) 0.3 TH/MM3 Basophils # (Auto) 0.1 TH/MM3 CBC Comment DIFF FINAL Differential Comment Prothrombin Time 11.0 SEC Prothromb Time International Ratio 1.1 RATIO Activated Partial Thromboplast Time 27.1 SEC Blood Urea Nitrogen 28 MG/DL Creatinine 1.61 MG/DL Random Glucose 148 MG/DL Total Protein 7.1 GM/DL Albumin 2.9 GM/DL Calcium Level 8.2 MG/DL Magnesium Level 2.5 MG/DL Alkaline Phosphatase 96 U/L Aspartate Amino Transf (AST/SGOT) 9 U/L Alanine Aminotransferase (ALT/SGPT) LESS THAN 6 U/L Total Bilirubin 0.2 MG/DL Sodium Level 142 MEQ/L Potassium Level 3.7 MEQ/L Chloride Level 102 MEQ/L Carbon Dioxide Level 30.8 MEQ/L Anion Gap 9 MEQ/L Estimat Glomerular Filtration Rate 38 ML/MIN Lactic Acid Level 1.4 mmol/L Total Creatine Kinase 84 U/L Troponin I LESS THAN 0.02 NG/ML Lipase 169 U/L Thyroid Stimulating Hormone 3rd Gen 1.260 uIU/ML Urine Color YELLOW Urine Turbidity HAZY Urine pH 5.5 Urine Specific Dietrich 1.023 Urine Protein 30 mg/dL Urine Glucose (UA) NEG mg/dL Urine Ketones NEG mg/dL Urine Occult Blood NEG Urine Nitrite NEG Urine Bilirubin NEG Urine Urobilinogen LESS THAN 2.0 MG/DL Urine Leukocyte Esterase MOD Urine RBC 5 /hpf Urine WBC 13 /hpf Urine Squamous Epithelial Cells 11 /hpf Urine Bacteria RARE /hpf Urine Hyaline Casts 6 /lpf Urine Mucus FEW /lpf Microscopic Urinalysis Comment CULTURE INDICATED MDM Medical Decision Making Medical Screen Exam Complete: Yes Emergency Medical Condition: Yes Medical Record Reviewed: Yes Interpretation(s) Twelve-lead EKG was reviewed by me. Normal sinus rhythm, left axis deviation, nonspecific ST-T wave changes, bradycardia. Heart rate of 57 bpm. Differential Diagnosis UTI, dehydration, stroke Narrative Course 10:58 PM blood test results of back and within acceptable limits. UA suggestive of UTI. Patient was given a dose of IV Rocephin. Head CT does not show any acute changes. At this point I'm comfortable discharging her back to the custodial with a prescription for Macrobid. Procedures EKG Prior to Arrival: No Diagnosis Primary Impression: UTI (urinary tract infection) Qualified Codes: N39.0 - Urinary tract infection, site not specified Referrals: Primary Care Physician Additional Instructions: Take the antibiotic as per the prescription direction. Return to the ER if condition worsens or any other new concerns. Med/Other Pt SpecificInfo: Prescription(s) given Scripts Nitrofurantoin Monohydrate Macrocrystals (Macrobid) 100 Mg Cap 100 MG PO BID for Infection for 10 Days, #20 CAP 0 Refills Prov: Marcelina Wetzel MD 11/19/17 Disposition: 01 DISCHARGE HOME Condition: Stable Marcelina Wetzel MD Nov 19, 2017 22:59
--- NOTE | 2017-11-20 08:45 | EKG ---
Date Performed: 11/19/2017 Time Performed: 21:11:49 PTAGE: 72 years EKG: SINUS BRADYCARDIA BORDERLINE LEFT AXIS DEVIATION NONSPECIFIC T-WAVE ABNORMALITY BORDERLINE ECG PREVIOUS TRACING : 01/21/2017 20.14 No significant change from previous tracing noted. DOCTOR: Sunil Cintron Interpretating Date/Time 11/20/2017 08:32:03
== END 2017-11-20 07:35 | disposition home or self-care (01) ==
LOC: NEPE 19:15 → NEDAMB 11-20 07:35
DX: N39.0 Urinary tract infection, site not specified (principal); B96.89 Other specified bacterial agents as the cause of diseases classified elsewhere; G30.9 Alzheimer's disease, unspecified; F02.80 Dementia in other diseases classified elsewhere, unspecified severity, without behavioral disturbance, psychotic disturbance, mood disturbance, and anxiety; I10 Essential (primary) hypertension; E11.9 Type 2 diabetes mellitus without complications; R94.31 Abnormal electrocardiogram [ECG] [EKG]; Z86.73 Personal history of transient ischemic attack (TIA), and cerebral infarction without residual deficits; Z88.8 Allergy status to other drugs, medicaments and biological substances; Z79.899 Other long term (current) drug therapy
CPT/HCPCS: 70450; 71045; 80053; 81001; 82550; 83605; 83690; 83735; 84443; 84484; 85025; 85610; 85730; 87040; 87086; 93005; 99285; P9612